=== PATIENT | male | born 1980 | race Two or more races ===

== ENCOUNTER 2017-02-18 22:54 | Emergency (ER) | payer OTHER ==
[~2017-02-18 22:54] MED LIST: COMPAZINE10 M PO; PEN-VEE K500 MG; PENICILLIN V P500 M1 PO; PERCOCET 5/3251 TAB PO; PROMETHAZINE HC25 MG; TRAMADOL HCL50 M2 PO; TYLENOL W/CODEI1 TAB
[2017-02-18] MEDS ORDERED: NO HOME MEDICATION XX (23:13)
[2017-02-18] MEDS ORDERED: CHERATUSSIN AC118 M1 PO (23:34)
== END 2017-02-19 00:27 ==
LOC: EDMED 22:54
DX: R05 Cough (principal); R50.9 Fever, unspecified; M79.1 Myalgia; R06.02 Shortness of breath; Z87.442 Personal history of urinary calculi